=== PATIENT | male | born 1970 | race Caucasian/White ===

== ENCOUNTER → 2025-02-20 | Outpatient (CLI) | payer MEDICAID, MEDICARE ==
[2025-02-20 12:24] LABS: BASOPHIL # 0.0 10^3/uL (0.0-0.1); BASOPHIL % 0.4 % (0.2-1.2); EOSINOPHIL # 0.1 10^3/uL (0.0-0.2); EOSINOPHIL % 1.7 % (0.0-5.0); HEMATOCRIT(ML) 51.0 % (37.0-53.0); IG % 0.40 % (0.00-0.50); LYMPHOCYTES # 1.86 10^3/uL1 (1.0-4.8); LYMPHOCYTES % 25.9 % (24.0-44.0); MEAN CORP HGB 30.3 pg (26-34); MEAN CORP HGB CONCENTRATION 32.2 g/dL (33-36.5); MEAN CORP VOLUME 94.3 fL (78-100); MONOCYTES # 0.5 10^3/uL (0.3-0.8); MONOCYTES % 6.4 % (5.0-12.0); NEUTROPHIL # 4.7 10^3/uL (1.8-7.7); NEUTROPHILS % 65.2 % (41.0-85.0); RED BLOOD CELL 5.41 10^6/uL (4.50-5.90); RED CELL DISTRIBUTION WIDTH 13.1 % (11.5-14.5); WHITE BLOOD CELL 7.2 10^3/uL (4.5-11.0)
[2025-02-20 12:40] LABS: ALANINE AMINOTRANSFERASE(ML) 18.0 U/L (12-78); ALBUMIN(ML) 3.2 g/dL (3.4-5.0); CREATININE SERUM 1.11 mg/dL (0.59-1.40); EST GFR, NON-AA 68.8 (>/=60)
== END | disposition home or self-care (01) ==
LOC: NPLAB 11:58
PROVIDERS: ATTEND Internal Medicine
DX: L03.90 Cellulitis, unspecified (principal)
CPT/HCPCS: 36415; 80053; 84550; 85025